=== PATIENT | female | born 1960 | race Caucasian/White ===

== ENCOUNTER → 2019-01-04 | Outpatient (CLI) | payer OTHER ==
--- NOTE | 2019-01-05 03:30 | REP ---
Clinical: Trauma. Crush injury. Technique: AP, lateral, bilateral oblique views of the right foot. Findings: There is an oblique fracture involving the distal aspect of the fifth metatarsal bone. Remainder examination is essentially normal for age. Impression: Oblique fracture involving the fifth metatarsal bone. Electronically Signed by Alec Parkinson MD 01/05/2019 03:22 A
== END ==
LOC: M ADAMS 13:18
PROVIDERS: ATTEND Physician Assistant
DX: S92.354A Nondisplaced fracture of fifth metatarsal bone, right foot, initial encounter for closed fracture (principal); S97.81XA Crushing injury of right foot, initial encounter; X58.XXXA Exposure to other specified factors, initial encounter; Y92.9 Unspecified place or not applicable

== ENCOUNTER → 2019-08-10 | Outpatient (REF) | payer OTHER | LOC: M LAB REF 17:32 | PROVIDERS: ATTEND Physician Assistant | DX: N39.0 Urinary tract infection, site not specified (principal) ==